=== PATIENT | male | born 1935 | race Caucasian/White ===

== ENCOUNTER 2016-12-31 17:02 | Emergency (ER) | payer MEDICARE ==
[~2016-12-31] VITALS: Ht 180.3 cm; Wt 104.0 kg
[~2016-12-31 17:02] MED LIST: ASPI-621 PO; ATEN25TA PO; ATOR40TA PO; CLOP75TA52 PO; FINA1TAB16 PO; HYDR25TA6 PO; LISI5TAB7 PO; NITR0.4T SL
[2016-12-31 17:05] VITALS: BP 134/85
[2016-12-31] MEDS ORDERED: KETOROLAC 30 MG/1 ML ONE (17:43)
[2016-12-31 17:44] LABS: HEMATOCRIT 44.8 % (39.2-51.8); HEMOGLOBIN 14.7 g/dL (13.7-18.0); WHITE BLOOD COUNT 7.7 x10^3/uL (3.4-10)
[2016-12-31 17:58] LABS: ASPARTATE AMINO TRANSFERASE 19 U/L (15-37); BLOOD UREA NITROGEN 17 mg/dL (7-18)
[2016-12-31 18:17] LABS: PATH.CAST-FLAG NOT PRESENT; SPERM-FLAG NOT PRESENT; SRC-FLAG NOT PRESENT; XTAL-FLAG NOT PRESENT; YLC-FLAG NOT PRESENT
== END 2016-12-31 19:43 | disposition home or self-care (01) ==
LOC: ED 18:32
DX: N20.1 Calculus of ureter (principal); I10 Essential (primary) hypertension; I25.2 Old myocardial infarction; Z90.89 Acquired absence of other organs
CPT/HCPCS: 36415; 74176; 80053; 81001; 85025; 87086; 99285

== ENCOUNTER 2018-03-12 13:14 | Observation (INO) | payer MEDICARE ==
[~2018-03-12] VITALS: Ht 180.3 cm; Wt 96.9 kg
[~2018-03-12 13:14] MED LIST changes: -ASPI-621 PO; +ASPI81TA45 PO
--- NOTE | 2018-03-12 13:21 | NUR ---
EKG DONE IN TRIAGE. TO
--- NOTE | 2018-03-12 13:36 | NUR ---
PT AMBULATORY TO ROOM 41 W/ C/O CP STARTED 2 DAYS AGO. PT HAS HX OF SD W/ STENTS. PT RESTING ON GURVERONICA. SHEN. MONITORS APPLIED. FAMILY AT BEDSIDE.
[2018-03-12] MEDS ORDERED: NITROGLYCERIN SINGLE TAB 0.4 MG SL ONE (13:44)
[2018-03-12] MEDS ORDERED: ASPIRIN 81 MG TABLET CHEW ONE (13:45)
[2018-03-12] MEDS ORDERED: GLUC15006 PO (13:59)
[2018-03-12] MEDS ORDERED: MULT-6 PO (13:59)
[2018-03-12] MEDS ORDERED: TAMS-11 PO (13:59)
[2018-03-12] MEDS ORDERED: OMEG100023 PO (13:59)
[2018-03-12] MEDS ORDERED: ASPIRIN 81 MG TABLET CHEW PO PRN (14:00)
[2018-03-12] MEDS ORDERED: NITROGLYCERIN SINGLE TAB 0.4 MG SL PRN (14:00)
--- NOTE | 2018-03-12 14:00 | NUR ---
PT MEDICATED W/ NITRO SL. PT STATES NO CHANGES IN CP.
--- NOTE | 2018-03-12 14:02 | NUR ---
PT BP DECREASED TO 100/66. WILL HOLD OFF ON 2ND NITRO SL AT THIS TIME.
[2018-03-12 14:09] LABS: BASOPHILS # (AUTO) 0.05 x10^3/uL (0-0.1); BASOPHILS % (AUTO) 1 % (0-1); EOSINOPHILS # (AUTO) 0.33 x10^3/uL (0-0.4); EOSINOPHILS % (AUTO) 5 % (1-7); LYMPHOCYTES # (AUTO) 1.24 x10^3/uL (1-3.4); LYMPHOCYTES % (AUTO) 19 % (22-44); MD NO; MEAN CORPUSCULAR HEMOGLOBIN 30.6 pg (27.5-34.5); MEAN CORPUSCULAR HGB CONC 33.6 g/dL (33.2-36.2); MEAN CORPUSCULAR VOLUME 90.9 fL (81-97); MEAN PLATELET VOLUME 8.2 fL (7.4-10.4); MONOCYTES # (AUTO) 0.74 x10^3/uL (0.2-0.8); MONOCYTES % (AUTO) 11 % (2-9); NEUTROPHILS # (AUTO) 4.14 x10^3/uL (1.8-6.8); NEUTROPHILS % (AUTO) 64 % (42-75); PLATELET COUNT 208 x10^3/uL (130-400); RED BLOOD COUNT 4.79 x10^6/uL (4.38-5.82); RED CELL DISTRIBUTION WIDTH 14.4 % (9.4-14.8)
[2018-03-12 14:19] LABS: ALANINE AMINOTRANSFERASE 26 U/L (12-78); ALBUMIN 3.5 g/dL (3.4-5.0); ANION GAP 7 mmol/L (5-15); CALCIUM 8.6 mg/dL (8.5-10.1); CHLORIDE 109 mmol/L (98-107); CREATININE 0.76 mg/dL (0.7-1.3)
[2018-03-12 14:23] LABS: ALKALINE PHOSPHATASE 87 U/L (45-117); BILIRUBIN,TOTAL 1.3 mg/dL (0.2-1.0); TOTAL PROTEIN 7.1 g/dL (6.4-8.2); TROPONIN I < 0.015 ng/mL (0.000-0.045)
--- NOTE | 2018-03-12 14:39 | NUR ---
PT CHART REVIEWED AND PLACED FOR RECHECK.
--- NOTE | 2018-03-12 15:00 | NUR ---
PT RESTING ON GURNEY. NADN. SANCHEZ.
--- NOTE | 2018-03-12 15:25 | NUR ---
TASK RN: PT TO CT WITH TECH TRANSPORT
[2018-03-12] MEDS ORDERED: OMNIPAQUE 350 MG/ML, 100ML BOTTLE ONE (15:43)
--- NOTE | 2018-03-12 15:46 | NUR ---
TASK RN: PT RTD FROM CT. VSS, CALL LIGHT W/I REACH
--- NOTE | 2018-03-12 15:52 | NUR ---
PT CHART REVIEWED AND PLACED FOR RECHECK.
--- NOTE | 2018-03-12 16:43 | NUR ---
PT RESTING ON GURVERONICA. FENGN. VSS. AWARE OF POC FOR ADMIT. WARM BLANKET PROVIDED.
--- NOTE | 2018-03-12 17:19 | NUR ---
SPOKE W/ AGUSTIN KAMARA. BETITO FOR PT TO HAVE CARDIAC DIET. DIET ORDERED.
[2018-03-12] MEDS ORDERED: ONDANSETRON 2MG/ML, 2ML IVP PRN (17:30)
[2018-03-12] MEDS ORDERED: NITROGLYCERIN 0.4 MG BOTTLE (25 TABS) SL PRN ×3 (17:30→19:30)
[2018-03-12] MEDS ORDERED: ACETAMINOPHEN 650 MG/20.3 ML UDC PO PRN (17:30)
[2018-03-12] MEDS ORDERED: ENOXAPARIN 40 MG/0.4 ML SQ SCH (17:30)
[2018-03-12] MEDS ORDERED: KETOROLAC 30 MG/1 ML IVPush ONE (17:30)
[2018-03-12] MEDS ORDERED: NITROGLYCERIN 0.4 MG/SPRAY SL PRN (17:30)
[2018-03-12] MEDS ORDERED: morphine SULFATE 10 MG/ML, 1ML IV PRN (17:30)
[2018-03-12] MEDS ORDERED: ENOXAPARIN 40 MG/0.4 ML ONE (17:38)
--- NOTE | 2018-03-12 17:59 | NUR ---
PT PROVIDED W/ DINNER TRAY.
--- NOTE | 2018-03-12 18:34 | NUR ---
PT RESTING ON GURNEY. NADN. SANCHEZ.
[2018-03-12 18:41] LABS: HCT (SEDRATE) 43.5 % (39.2-51.8)
--- NOTE | 2018-03-12 18:43 | NUR ---
REPORT GIVEN TO SHAMAR CROCKETT RN. ALL QUESTIONS ANSWERED. AWAITING PT TRANSPORT.
[2018-03-12 20:15] VITALS: BP 147/82
[2018-03-12 20:50] LABS: TROPONIN I < 0.015 ng/mL (0.000-0.045)
[2018-03-12] MEDS ORDERED: ATORVASTATIN 40 MG TABLET PO SCH (21:00)
[2018-03-12] MEDS ORDERED: TEMPLATE NON-FORMULARY MED. (Glucosamine Hcl** 1,500 MG) PO SCH (21:00)
[2018-03-12 21:35] VITALS: BP_SYST 122; BP_SYST 151; BP_DIAS 71; BP_DIAS 90
[2018-03-12] MEDS: SODIUM CHLORIDE FLUSH 10ML SYR IVF SCH (21:52)
[2018-03-13 01:40] VITALS: BP 124/78
[2018-03-13 03:03] LABS: TROPONIN I < 0.015 ng/mL (0.000-0.045)
[2018-03-13 03:05] LABS: ALBUMIN 3.2 g/dL (3.4-5.0); ANION GAP 6 mmol/L (5-15); CALCIUM 8.1 mg/dL (8.5-10.1); CHLORIDE 108 mmol/L (98-107)
[2018-03-13 03:09] LABS: ALANINE AMINOTRANSFERASE 24 U/L (12-78); ALKALINE PHOSPHATASE 79 U/L (45-117); BILIRUBIN,TOTAL 0.8 mg/dL (0.2-1.0); CHOL/HDL RATIO 2.5; CHOLESTEROL, TOTAL 125 mg/dL (140-239); CREATININE 0.71 mg/dL (0.7-1.3); HDL CHOL % 41 % (26-37); HDL CHOLESTEROL (DIRECT) 51 mg/dL (40-60); LDL CHOLESTEROL,CALCULATED 55 mg/dL (54-169); LDL/HDL RATIO 1.1 (0.5-3.0); TOTAL PROTEIN 6.5 g/dL (6.4-8.2); TRIGLYCERIDES 97 mg/dL (50-200); VLDL CHOLESTEROL 19 mg/dL (0-25)
[2018-03-13] MEDS ORDERED: ASPIRIN 325 MG TABLET PO SCH (06:00)
[2018-03-13 06:42] VITALS: BP 129/79
[2018-03-13] MEDS: SODIUM CHLORIDE FLUSH 10ML SYR IVF SCH (08:23)
[2018-03-13] MEDS ORDERED: REGADENOSON 0.4 MG/5 ML SYRINGE ONE (08:35)
[2018-03-13] MEDS ORDERED: OMEGA-3/FISH OIL CAPSULE PO SCH (09:00)
[2018-03-13] MEDS ORDERED: MULTIVITAMIN 1 TABLET PO SCH (09:00)
[2018-03-13] MEDS ORDERED: FINASTERIDE 5 MG TABLET PO SCH (09:00)
[2018-03-13] MEDS ORDERED: CLOPIDOGREL 75 MG TABLET PO SCH (09:00)
[2018-03-13 13:35] VITALS: BP 130/87
== END 2018-03-13 16:22 | disposition home or self-care (01) ==
LOC: ED 14:06 → UNDOADMOB 16:44 → EDIP 16:44 → INTOOBSV 16:44 → EDIP 17:34 → 5SO 19:13 → UNDODISOB 03-13 16:22
PROVIDERS: ADMIT Hospitalist; ATTEND Hospitalist
DX: R07.9 Chest pain, unspecified (principal); I71.00 Dissection of unspecified site of aorta; K50.90 Crohn's disease, unspecified, without complications; E78.5 Hyperlipidemia, unspecified; G62.9 Polyneuropathy, unspecified; I10 Essential (primary) hypertension; I25.10 Atherosclerotic heart disease of native coronary artery without angina pectoris; N40.0 Benign prostatic hyperplasia without lower urinary tract symptoms; I25.2 Old myocardial infarction; Z87.891 Personal history of nicotine dependence; Z95.5 Presence of coronary angioplasty implant and graft; Z82.49 Family history of ischemic heart disease and other diseases of the circulatory system; Z90.49 Acquired absence of other specified parts of digestive tract
CPT/HCPCS: 36415; 71045; 71275; 78452; 80053; 80061; 84443; 84484; 85025; 85651; 93005; 93017; 93306; 96372; 99284; A9502; C9898; G0378; J1650; J2785; Q9967; 99285

== ENCOUNTER → 2019-03-07 | Outpatient (CLI) | payer MEDICARE ==
[~2019-03-07] MED LIST changes: +ACET325T26 PO; +GLUC15006 PO; +MULT-6 PO; -NITR0.4T SL; +NITR0.4T41 SL; +OMEG100023 PO; +PANT40TA5 PO; +TAMS-11 PO
== END | disposition home or self-care (01) ==
LOC: CFH 09:29
PROVIDERS: ATTEND Physician Assistant Medical
DX: I35.1 Nonrheumatic aortic (valve) insufficiency (principal); I25.10 Atherosclerotic heart disease of native coronary artery without angina pectoris
CPT/HCPCS: 93306

== ENCOUNTER → 2020-09-12 | Outpatient (CLI) | payer MEDICARE ==
[~2020-09-12] MED LIST changes: -PANT40TA5 PO; +PANT40TA6 PO
== END | disposition home or self-care (01) ==
LOC: CFH 08:25
PROVIDERS: ATTEND Internal Medicine Cardiovascular Disease
DX: I08.3 Combined rheumatic disorders of mitral, aortic and tricuspid valves (principal); I10 Essential (primary) hypertension; I25.10 Atherosclerotic heart disease of native coronary artery without angina pectoris
CPT/HCPCS: 93306

== ENCOUNTER 2020-09-20 13:20 | Outpatient (CLI) | payer MEDICARE | END 2020-09-20 23:59 | disposition home or self-care (01) | LOC: WOUND 13:20 | PROVIDERS: ATTEND Podiatrist Foot & Ankle Surgery | DX: L97.512 Non-pressure chronic ulcer of other part of right foot with fat layer exposed (principal); L84 Corns and callosities; I25.10 Atherosclerotic heart disease of native coronary artery without angina pectoris; I10 Essential (primary) hypertension; K21.9 Gastro-esophageal reflux disease without esophagitis; E78.5 Hyperlipidemia, unspecified; I73.9 Peripheral vascular disease, unspecified; N40.0 Benign prostatic hyperplasia without lower urinary tract symptoms; G62.9 Polyneuropathy, unspecified; Z79.01 Long term (current) use of anticoagulants; Z87.891 Personal history of nicotine dependence | CPT/HCPCS: 97597; G0463 ==

== ENCOUNTER → 2020-09-27 | Outpatient (CLI) | payer MEDICARE | END | disposition home or self-care (01) | LOC: WOUND 09:03 | PROVIDERS: ATTEND Podiatrist Foot & Ankle Surgery | DX: L97.512 Non-pressure chronic ulcer of other part of right foot with fat layer exposed (principal); I25.10 Atherosclerotic heart disease of native coronary artery without angina pectoris; I10 Essential (primary) hypertension; K21.9 Gastro-esophageal reflux disease without esophagitis; E78.5 Hyperlipidemia, unspecified; I73.9 Peripheral vascular disease, unspecified; N40.0 Benign prostatic hyperplasia without lower urinary tract symptoms; Z79.01 Long term (current) use of anticoagulants; Z87.891 Personal history of nicotine dependence | CPT/HCPCS: 11042 ==

== ENCOUNTER 2020-10-04 08:53 | Outpatient (CLI) | payer MEDICARE | END 2020-10-04 23:59 | disposition home or self-care (01) | LOC: WOUND 08:53 | PROVIDERS: ATTEND Podiatrist Foot & Ankle Surgery | DX: L97.518 Non-pressure chronic ulcer of other part of right foot with other specified severity (principal); L84 Corns and callosities; I25.10 Atherosclerotic heart disease of native coronary artery without angina pectoris; I10 Essential (primary) hypertension; K21.9 Gastro-esophageal reflux disease without esophagitis; E78.5 Hyperlipidemia, unspecified; I73.9 Peripheral vascular disease, unspecified; N40.0 Benign prostatic hyperplasia without lower urinary tract symptoms; Z79.01 Long term (current) use of anticoagulants; Z87.891 Personal history of nicotine dependence | CPT/HCPCS: G0463 ==